=== PATIENT | male | born 1935 | race Caucasian/White ===

== ENCOUNTER 2016-07-03 14:42 | Emergency (ER) | payer MEDICARE, OTHER ==
[~2016-07-03] VITALS: Ht 167.6 cm; Wt 84.1 kg
[~2016-07-03 14:42] MED LIST: BENICAR; LORTAB 5/500 501 TAB PO; MVI; NIFEREX-150 FOR1 CA1 PO; VITAMIN C1 TAB PO; VITAMIN E-400200 IU PO
[2016-07-03 14:46] VITALS: TEMP 98.1
[2016-07-03] MEDS ORDERED: VITAMIN D1000 IU PO (14:49)
[2016-07-03] MEDS ORDERED: LIPITOR20 MG PO (14:50)
[2016-07-03 15:46] LABS: ADJUSTED CALCIUM 9.8 mg/dL (8.4-10.2); ALANINE AMINOTRANSFERASE 31 U/L (21-72); ALBUMIN 3.5 gm/dL (3.5-5.0); ALKALINE PHOSPHATASE 109 U/L (50-136); ANION GAP 8 mmol/L (7-16); BILIRUBIN,TOTAL 1.3 mg/dL (0.0-1.0); BLOOD UREA NITROGEN 13 mg/dL (9-20); CALCIUM 9.4 mg/dL (8.4-10.2); CARBON DIOXIDE 31 mmol/L (22-30); CHLORIDE 97 mmol/L (98-107); CREATININE, serum 0.66 mg/dL (0.66-1.25); GLUCOSE 108 mg/dL (74-106); POTASSIUM 3.6 mmol/L (3.4-5.0); SODIUM 135 mmol/L (137-145); TOTAL PROTEIN 6.6 gm/dL (6.4-8.2)
[2016-07-03 15:52] LABS: BASO % 0.6 % (0.0-2.0); EOS # 0.2 (0.0-0.7); EOS % 3.2 % (0-4.0); GRAN # 2.3 (1.4-6.5); GRAN % 44.3 % (42.2-75.2); HEMOGLOBIN 12.3 g/dl (13.5-18.0); LYMPH % 37.8 % (20.0-51.0); MEAN CELL VOLUME 98 fl (80.0-100.0); MEAN CORPUSCULAR HEMOGLOBIN 34 pg (27.0-31.0); MEAN CORPUSCULAR HGB CONC 34 g/dl (33.0-37.0); MEAN PLATELET VOLUME 10.8 fl (7.4-10.4); MONO # 0.7 (0.1-0.6); MONO % 13.9 % (1.7-9.3); PLATELET COUNT 177 K/mm3 (130-400); RED BLOOD COUNT 3.66 M/mm3 (4.20-5.60); REDCELL DISTRIBUTION WIDTH-CV 13.4 % (11.5-14.5); WHITE BLOOD COUNT 5.2 K/mm3 (4.8-10.8)
[2016-07-03 15:53] LABS: HEMATOCRIT 35.8 % (42.0-52.0)
[2016-07-03 15:55] LABS: B-TYPE NATRIURETIC PEPTIDE 149 pg/mL (0-450)
[2016-07-03 16:04] LABS: TROPONIN-I < 0.012 ng/mL (0.000-0.034)
[2016-07-03] MEDS ORDERED: CATAPRES 0.1MG0.1 MG PO (16:33)
[2016-07-03 17:14] VITALS: BP 138/75; PULSE 60
== END 2016-07-03 17:25 | disposition home or self-care (01) ==
LOC: COL.ER 14:42
PROVIDERS: Emergency Medicine
DX: I10 Essential (primary) hypertension (principal); R42 Dizziness and giddiness; Z87.891 Personal history of nicotine dependence; Z95.0 Presence of cardiac pacemaker
CPT/HCPCS: J7040